=== PATIENT | male | born 1935 | race Caucasian/White ===

== ENCOUNTER 2016-12-07 13:25 | Inpatient (IN) | payer MEDICARE, OTHER ==
[2016-12-07] MEDS ORDERED: Sodium Chloride 0.9% 10 ML Syringe FLUSH PRN (13:53)
[2016-12-07] MEDS: Lactated Ringers 1,000 ML IV SCH ×2 (15:23→23:23)
--- NOTE | 2016-12-07 15:43 | CR ---
INDICATION: Confusion. CHEST: Four images of the abdomen, three of them AP chests and one lateral, were obtained 12/07/2016 and compared with 11/09/2010, revealing the heart to be prominent in size, but not grossly enlarged. The aorta is tortuous and calcified in the arch and proximal descending portion. Bridging hyperostotic changes of mild degree to moderate degree are noted in the mid to upper middle thoracic spine. AP diameter prominence, slightly flattened diaphragm leaves, and hyperaeration all suggest COPD. A definite active infiltrate or effusion was not identified. Nipple shadows are noted at both lung bases. IMPRESSION: 1. No acute process. 2. COPD. 3. ASHD. 4. DJD spine. MTDD
--- NOTE | 2016-12-07 15:52 | CR ---
INDICATION: Pain, recent falls. Most shoulder pain on the left. RIGHT AND LEFT SHOULDERS: Six images of the shoulders were obtained and revealed demineralization compatible with osteoporosis. Evidence of 5 anchors on the right and 2 anchors on the left, compatible with rotator cuff repair, is noted. Severe degenerative changes are noted at the glenohumeral joints with a greater degree of narrowing and hypertrophic change on the left, there being virtually no remaining joint space on the left and 1.5-mm remaining joint space on the right. Relatively mild degenerative changes are noted at the AC joints. A definite fracture or dislocation was not identified. IMPRESSION: 1. Osteoarthritis, left greater than right. 2. Osteoporosis. 3. Post surgical changes with 2 anchors in the greater tuberosity on the left and 5 anchors on the right. MTDD
--- NOTE | 2016-12-07 16:12 | PCM.HP ---
H&P History of Present Illness - General Date of Service: 12/07/16 Admit Problem/Dx: Admission Diagnosis/Problem Admission Diagnosis/Problem Weakness Source of Information: Patient, Old Records - History of Present Illness Initial Comments - Free Text/Narative: 80-year-old male from [facility]. He came in because generalized weakness,and confusion symptoms which got significantly worse in him a month. His main concern today is left shoulder pain that is chronic.No trauma.Had injection of a steroid in October,withno improvement.Movement makes the pain worse. The confusion has been noted by the staff,with increased need of assistance with activities of daily living .He has a history of Parkinson's disease that's progressively gotten worse recently,with speech and gait disturbance.He has hypertension ,afib,CHF which have been stable. Left shoulder Pain Score (Numeric/FACES): 5 - Related Data Allergies/Adverse Reactions: Allergies Allergy/AdvReac Type Severity Reaction Status Date / Time No Known Allergies Allergy Verified 12/07/16 15:25 Home Medications: Home Meds Acetaminophen [Tylenol] 650 mg PO Q4H PRN 04/02/14 [History] Aspirin [Halfprin] 81 mg PO DAILY 04/02/14 [History] Finasteride [Proscar] 5 mg PO DAILY 04/02/14 [History] Loperamide [Imodium] 4 mg PO Q6H PRN 04/02/14 [History] Magnesium Citrate 296 ml PO DAILY PRN 04/02/14 [History] Polyethylene Glycol 3350 [MiraLAX] 17 gm PO DAILY PRN 04/02/14 [History] Pramipexole Di-HCl [Mirapex] 0.25 mg PO BID 04/02/14 [History] Carbidopa/Levodopa [Carbidopa-Levodopa 25-100] 1 tab PO 06,10,14,18 04/05/14 [ History] Melatonin 5 mg PO BEDTIME 05/27/15 [History] Etodolac 400 mg PO Q8H PRN 03/19/16 [History] Febuxostat [Uloric] 40 mg PO DAILY 03/19/16 [History] Hydrochlorothiazide 25 mg PO DAILY 03/19/16 [History] Pramipexole Di-HCl [Mirapex] 0.25 mg PO Q4H PRN 03/20/16 [History] Acetaminophen [Tylenol Arthritis] 650 mg PO BID 12/07/16 [History] Past Medical History HEENT History: Reports: Cataract Other HEENT History: BASAL CELL CA OF LEFT LOWER EYELID. Cardiovascular History: Reports: Afib, Hypertension Respiratory History: Reports: None Other Gastrointestinal History: STATES HAS HAD HERNIA REPAIR Genitourinary History: Reports: Prostate Disorder Musculoskeletal History: Reports: Back Pain, Chronic, Fracture, Gout Neurological History: Reports: Parkinson's Psychiatric History: Reports: Anxiety Hematologic History: Reports: None Immunologic History: Reports: None Oncologic (Cancer) History: Reports: Basal Cell Carcinoma, Prostate Dermatologic History: Reports: Other (See Below) Other Dermatologic History: FACIAL BASAL CELL CANCER - Infectious Disease History Infectious Disease History: Reports: Chicken Pox, Influenza, Shingles - Past Surgical History HEENT Surgical History: Reports: Cataract Surgery Cardiovascular Surgical History: Reports: None Respiratory Surgical History: Reports: None GI Surgical History: Reports: Appendectomy, Hernia, Abdominal Male Surgical History: Reports: Other (See Below) Musculoskeletal Surgical History: Reports: Shoulder Surgery, Other (See Below) Dermatological Surgical History: Reports: Skin Biopsy Social & Family History - Family History Family Medical History: Noncontributory - Tobacco Use Smoking Status *Q: Never Smoker Second Hand Smoke Exposure: No - Caffeine Use Caffeine Use: Reports: Coffee - Alcohol Use Days Per Week of Alcohol Use: 7 Number of Drinks Per Day: 2 Total Drinks Per Week: 14 - Recreational Drug Use Recreational Drug Use: No H&P Review of Systems - Review of Systems: Review Of Systems: ROS reveals no pertinent complaints other than HPI. Exam - Exam Exam: See Below - Vital Signs Vital Signs: Last Vital Signs Temp 97.6 F 12/07/16 13:53 Pulse 48 L 12/07/16 13:53 Resp 18 12/07/16 13:53 BP 143/84 H 12/07/16 13:53 Pulse Ox 100 12/07/16 13:53 Weight: 79.333 kg - Exam General: Alert, Oriented, 4 HEENT: PERRLA, Hearing Intact, Mucosa Moist & [place], Nares Patent, Normal Nasal Septum, Posterior Pharynx Clear, Conjunctiva Clear, EOMI, EACs Clear, TMs Clear Neck: Supple, Trachea Midline, 2 Lungs: Clear to Auscultation, Normal Respiratory Effort Cardiovascular: Regular Rate, Regular Rhythm Abdomen: Normal Bowel Sounds, Soft (Male) Exam: Deferred Rectal (Males) Exam: Deferred Back Exam: Normal Inspection, Full Range of Motion, NT Extremities: Other (Left shoulder decreased ROM) Skin: Warm, Dry, Intact Neurological: Cranial Nerves Intact, Abnormal Gait Neuro Extensive - Mental Status: Alert, Oriented x3, Normal Mood/Affect, Normal Cognition Neuro Extensive - Motor, Sensory, Reflexes: Dysarthria, Tremor Psychiatric: Alert, Normal Affect, Normal Mood - Patient Data Imaging Impressions last 24 hrs: I reviewed Xrays,OA in the shoulders *Q Meaningful Use (ADM) - VTE *Q VTE Criteria *Q: - Stroke *Q Stroke Criteria *Q: - AMI *Q AMI Criteria *Q: - Problem List (1) Physical deconditioning SNOMED Code(s): 30197735263239 ICD Code: R53.81 - OTHER MALAISE Status: Acute Current Visit: Yes (2) Osteoarthritis SNOMED Code(s): 884145902 ICD Code: M19.90 - UNSPECIFIED OSTEOARTHRITIS, UNSPECIFIED SITE Status: Acute Current Visit: Yes Qualifiers: Osteoarthritis location: shoulder Osteoarthritis type: primary (3) Dementia SNOMED Code(s): 38920327 ICD Code: F03.90 - UNSPECIFIED DEMENTIA WITHOUT BEHAVIORAL DISTURBANCE Status: Chronic Current Visit: No (4) HTN, Essential hypertension SNOMED Code(s): 72279034 ICD Code: I10 - ESSENTIAL (PRIMARY) HYPERTENSION Status: Chronic Priority : High Current Visit: No (5) Parkinson's disease SNOMED Code(s): 64853017 ICD Code: G20 - PARKINSON'S DISEASE Status: Chronic Priority: High Current Visit: No Onset Date: 04/02/14 Problem Details: Continue current medications. Continue medications Problem List Initiated/Reviewed/Updated: Yes Orders Last 24hrs: Active Orders 24 hr Category Date Time Status Patient Status [ADT] Routine ADT 12/07/16 13:53 Active Height and Weight [RC] 0600 Care 12/07/16 13:53 Active Intake and Output [RC] ,14, Care 12/07/16 13:54 Active Oxygen Therapy [RC] PRN Care 12/07/16 13:53 Active Up With Assistance [RC] ASDIRECTED Care 12/07/16 13:53 Active VTE/DVT Education [RC] Per Unit Routine Care 12/07/16 13:53 Active Vital Signs [RC] 08,12,16,20,00,04 Care 12/07/16 13:53 Active OT Evaluation and Treatment [CONS] Routine Cons 12/07/16 13:53 Active PT Evaluation and Treatment [CONS] Routine Cons 12/07/16 13:53 Active Regular Diet [DIET] Diet 12/07/16 Breakfast Active CBC WITH AUTO DIFF [HEME] AM Lab 12/08/16 05:11 Ordered COMPREHENSIVE METABOLIC PN,CMP [CHEM] AM Lab 12/08/16 05:11 Ordered TROPONIN I [CHEM] AM Lab 12/08/16 05:11 Ordered Lactated Ringers [Ringers, Lactated] 1,000 ml Med 12/07/16 14:00 Active IV ASDIRECTED Sodium Chloride 0.9% [Saline Flush] Med 12/07/16 13:53 Active 10 ml FLUSH ASDIRECTED PRN Peripheral IV Insertion Adult [OM.PC] Routine Oth 12/07/16 13:53 Ordered Resuscitation Status Routine Resus Stat 12/07/16 13:53 Ordered Medication Orders Lactated Ringer's (Ringers, Lactated) 1,000 mls @ 125 mls/hr IV ASDIRECTED CATHY Last Admin: 12/07/16 15:23 Dose: 125 mls/hr Sodium Chloride (Saline Flush) 10 ml FLUSH ASDIRECTED PRN PRN Reason: Keep Vein Open Last Admin: 12/07/16 15:24 Dose: 10 ml Assessment/Plan Comment:: I plan to give him fluid resuscitation with normal saline or lactated Ringer's. I went repeat some blood work in morning,Also I would like physical and occupational therapy to see him for strengthening purposes. Control his pain with Voltaren gel to the left shoulder and perhaps Celebrex when necessary. After physical and Occupational therapy, he might need disposition to either swing bed or a residential facility.For now will continue the rest of his home medications.
[2016-12-07] MEDS ORDERED: Polyethylene Glycol 3350 Powder 17 GM Packet PO PRN (16:22)
[2016-12-07] MEDS ORDERED: Acetaminophen 325 MG Tab PO PRN (16:22)
[2016-12-07] MEDS ORDERED: Pramipexole 0.25 MG Tab PO PRN (16:22)
[2016-12-07] MEDS ORDERED: Magnesium Citrate Solution 296 ML Bottle PO PRN (16:22)
[2016-12-07] MEDS ORDERED: Loperamide 2 MG Cap PO PRN (16:22)
[2016-12-07] MEDS: Carbidopa/Levodopa 25-100 MG Tab PO SCH (17:31)
[2016-12-07] MEDS: Diclofenac Sodium 1% Gel 100 GM Tube TOP SCH ×2 (17:32→20:56)
[2016-12-07] MEDS: Celecoxib 200 MG Cap PO SCH (17:32)
[2016-12-07] MEDS: Pramipexole 0.25 MG Tab PO SCH (20:56)
[2016-12-08] MEDS: Lactated Ringers 1,000 ML IV SCH (05:41)
[2016-12-08] MEDS: Carbidopa/Levodopa 25-100 MG Tab PO SCH ×4 (05:42→17:31)
[2016-12-08] MEDS: Aspirin 81 MG Tab.EC PO SCH (08:50)
[2016-12-08] MEDS: Celecoxib 200 MG Cap PO SCH (08:50)
[2016-12-08] MEDS: Finasteride 5 MG Tab PO SCH (08:50)
[2016-12-08] MEDS: Febuxostat 40 MG Tab PO SCH (08:50)
[2016-12-08] MEDS: Diclofenac Sodium 1% Gel 100 GM Tube TOP SCH ×4 (08:50→21:22)
[2016-12-08] MEDS: Hydrochlorothiazide 25 MG Tab PO SCH (08:50)
[2016-12-08] MEDS: Pramipexole 0.25 MG Tab PO SCH ×2 (08:50→21:21)
--- NOTE | 2016-12-08 10:33 | PN ---
DATE SEEN: 12/08/2016 CHIEF COMPLAINT: Pain, left shoulder. HISTORY OF PRESENT ILLNESS: This is an 81-year-old male, brought in yesterday because of confusion, generalized weakness, and increased difficulty in ambulation due to parkinsonism. He also has chronic left shoulder pain due to osteoarthritis. This morning, he feels better. The pain is controlled on Celebrex and Voltaren gel. He has also been seen by Occupational Therapy. He feels that he is almost back to his baseline in terms of pain and movement. REVIEW OF SYSTEMS: There has been no fever or chills. No chest pain. No shortness of breath. He slept well. MEDICATIONS: Reviewed. ALLERGIES: Reviewed. PHYSICAL EXAMINATION: GENERAL: He appears not in any cardiopulmonary distress. VITAL SIGNS: Initial blood pressure today is 149/82, pulse 40, and temperature 97.5. HEENT: Negative. Head normal size. MENTAL STATUS: Alert and answers questions well. No signs of arcelia or psychosis. Memory is intact. MUSCULOSKELETAL: Left shoulder, decreased range of motion, but better than yesterday. Gait shuffling. NEUROLOGIC: No other focal findings. LABORATORY DATA: Normal white cell count this morning. CO2 of 31. Sodium and electrolytes are normal. Troponin less than 0.01. X-ray, they did show osteoarthritis on the left shoulder. IMPRESSION: 1. Chronic osteoarthritis, left shoulder. 2. Parkinsonism. 3. Alteration of mental status, likely mild delirium. 4. General weakness and physical deconditioning. 5. History of atrial fibrillation. PLAN: My plan is to continue physical strengthening today. I encouraged ambulation. I expect that I will send him back to the [facility] tomorrow. /[id number] SONIYA/NEALL
[2016-12-09] MEDS: Carbidopa/Levodopa 25-100 MG Tab PO SCH ×4 (05:41→17:23)
[2016-12-09] MEDS: Hydrochlorothiazide 25 MG Tab PO SCH (08:25)
[2016-12-09] MEDS: Febuxostat 40 MG Tab PO SCH (08:25)
[2016-12-09] MEDS: Finasteride 5 MG Tab PO SCH (08:25)
[2016-12-09] MEDS: Celecoxib 200 MG Cap PO SCH (08:25)
[2016-12-09] MEDS: Pramipexole 0.25 MG Tab PO SCH ×2 (08:25→20:55)
[2016-12-09] MEDS: Aspirin 81 MG Tab.EC PO SCH (08:25)
[2016-12-09] MEDS: Diclofenac Sodium 1% Gel 100 GM Tube TOP SCH ×4 (08:26→20:55)
--- NOTE | 2016-12-09 10:01 | PN ---
DATE SEEN: 12/09/2016 REASON FOR VISIT: Alteration of mental status. SUBJECTIVE: An 81-year-old male with alteration of mental status upon admission, Parkinsonism, chronic left shoulder pain, and generalized weakness and deconditioning, has improved. Yesterday, he attended physical therapy. They feel he is ready and back to his baseline. He had no complaints this morning. The pain in the left shoulder has improved significantly with diclofenac gel and Celebrex. He would like to go back to the [facility] with home health. REVIEW OF SYSTEMS: No fever, chest pain, or shortness of breath. No leg swelling. SOCIAL HISTORY: Nonsmoker. He does not use any alcohol in excess. OBJECTIVE: VITAL SIGNS: He has a blood pressure today of 128/68 and temperature 97.6. His heart rate is 38, which is chronically low. MENTAL STATUS: He is alert today and answers questions appropriately. MUSCULOSKELETAL: Revealed subluxation of the left shoulder and tenderness on moderate palpation, and slightly improved range of motion from yesterday. CHEST: Clear. CARDIOVASCULAR: No murmurs. Bradycardia noted. LABORATORY DATA: No new labs today. FINAL IMPRESSION: 1. Chronic left shoulder pain due to osteoarthritis. 2. Parkinsonism. 3. Mild mental status changes, improved. 4. Bradycardia. 5. Physical deconditioning, improved. 6. History of atrial fibrillation. PLAN: My plan is to discharge home back to the [facility]. He will need medication to help there for Home Health for medication and coordination of care will be necessary. /[id number] SONIYA/FABRICIO MCKENZIE
--- NOTE | 2016-12-09 11:28 | PN ---
DISCHARGE CANCELLED DATE SEEN: 12/09/2016 REASON FOR ADMISSION: 1. Physical deconditioning, weakness. 2. Confusion. 3. Parkinsonism. 4. Left shoulder pain. 5. Hypertension. DISCHARGE DIAGNOSES: 1. Left shoulder pain due to arthritis. 2. Physical deconditioning. 3. Dementia. 4. Mild hypertension. 5. Bradycardia. 6. Atrial fibrillation. CONSULTATIONS: Occupational and physical therapy. PROCEDURES: None. BRIEF HISTORY: This is an 81-year-old from [facility], who came to the clinic because of confusion, weakness, and needing more assistance than usual. He was dehydrated upon admission and we consulted physical and occupational therapy. They worked with him yesterday and they feel that he is back to his baseline. His labs were normal. He was noted to have a chronically low bradycardia, but with no symptoms. His shoulder improved upon physical therapy and diclofenac gel and Celebrex. He will be discharged home today. DISCHARGE MEDICATIONS: 1. Acetaminophen 650 mg q.4 hours p.r.n. 2. Aspirin 81 mg a day. 3. Sinemet 1 tablet 4 times a day. 4. Celebrex 200 mg daily. 5. Diclofenac gel q.i.d. 2 g. 6. Uloric 40 mg a day. 7. Proscar 5 mg daily. 8. Hydrochlorothiazide 25 mg a day. 9. Melatonin 5 mg p.o. at bedtime. 10.Mirapex p.r.n. every 4 hours, 0.5 mg b.i.d. FOLLOWUP: He will see his physician in a week. He can go back to the emergency room if there are any worsening symptoms. Please note that I spent 35 minutes in the discharge of the patient. /[id number] SONIYA/FABRICIO MTDD
[2016-12-10] MEDS: Carbidopa/Levodopa 25-100 MG Tab PO SCH ×2 (06:01→09:26)
--- NOTE | 2016-12-10 08:10 | PCM.PN ---
- General Info Date of Service: 12/10/16 Admission Dx/Problem (Free Text): Patient feels he is weak. The assisted living would not receive him back last because of the falls and weakness. He denies mental confusion, fevers, chills, nasal congestion, chest pain, shortness of breath, cough. - Patient Data Vitals - most recent: Last Vital Signs Temp 97.5 F 12/10/16 00:30 Pulse 36 L 12/10/16 00:30 Resp 16 12/10/16 00:30 BP 162/73 H 12/10/16 00:30 Pulse Ox 98 12/10/16 00:30 Weight - most recent: 174 lb 6.4 oz I&O - last 24 hours: Intake & Output 12/09/16 12/10/16 12/10/16 22:59 06:59 14:59 Intake Total 600 Output Total 300 1200 Balance 300 -1200 Med Orders - Current: Current Medications Acetaminophen (Tylenol) 650 mg PO Q4H PRN PRN Reason: Pain (mild 1-3) Last Admin: 12/09/16 20:58 Dose: 650 mg Aspirin (Halfprin) 81 mg PO DAILY [facility] Last Admin: 12/09/16 08:25 Dose: 81 mg Carbidopa/Levodopa (Sinemet 25-100 Mg) 1 tab PO ,,14,18 [facility] Last Admin: 12/10/16 06:01 Dose: 1 tab Celecoxib (Celebrex) 200 mg PO DAILY [facility] Last Admin: 12/09/16 08:25 Dose: 200 mg Diclofenac Sodium (Voltaren 1% Gel) 2 gm TOP QID [facility] Last Admin: 12/09/16 20:55 Dose: 2 gm Febuxostat (Uloric) 40 mg PO DAILY [facility] Last Admin: 12/09/16 08:25 Dose: 40 mg Finasteride (Proscar) 5 mg PO DAILY [facility] Last Admin: 12/09/16 08:25 Dose: 5 mg Hydrochlorothiazide (Hydrochlorothiazide) 25 mg PO DAILY [facility] Last Admin: 12/09/16 08:25 Dose: 25 mg Loperamide HCl (Imodium) 4 mg PO Q6H PRN PRN Reason: LOOSE STOOLS Magnesium Citrate (Citrate Of Magnesia) 296 ml PO DAILY PRN PRN Reason: Constipation Melatonin (Melatonin) 5 mg PO BEDTIME [facility] Last Admin: 12/09/16 20:55 Dose: 5 mg Polyethylene Glycol (Miralax) 17 gm PO DAILY PRN PRN Reason: Constipation Pramipexole Dihydrochloride (Mirapex) 0.25 mg PO BID [facility] Last Admin: 12/09/16 20:55 Dose: 0.25 mg Pramipexole Dihydrochloride (Mirapex) 0.25 mg PO Q4H PRN PRN Reason: restless legs Sodium Chloride (Saline Flush) 10 ml FLUSH ASDIRECTED PRN PRN Reason: Keep Vein Open Last Admin: 12/07/16 15:24 Dose: 10 ml Discontinued Medications Lactated Ringer's (Ringers, Lactated) 1,000 mls @ 125 mls/hr IV ASDIRECTED [facility] Last Admin: 12/08/16 05:41 Dose: 125 mls/hr - Exam General: alert, cooperative, no acute distress Lungs: Clear to auscultation, Normal respiratory effort Cardiovascular: Regular Rate, No Murmurs. No: Bradycardia, Tachycardia Extremities: no edema Neurological: normal tone, strength equal bilateral (week) Psy/Mental Status: alert, normal affect, normal mood - Problem List & Annotations (1) Palliative care status SNOMED Code(s): 442994804 Code(s): Z51.5 - ENCOUNTER FOR PALLIATIVE CARE Status: Acute Current Visit: Yes (2) Osteoarthritis SNOMED Code(s): 060888040 Code(s): M19.90 - UNSPECIFIED OSTEOARTHRITIS, UNSPECIFIED SITE Status: Acute Current Visit: Yes Qualifiers: Osteoarthritis location: shoulder Osteoarthritis type: primary (3) Physical deconditioning SNOMED Code(s): 61286169723038 Code(s): R53.81 - OTHER MALAISE Status: Acute Current Visit: Yes (4) Dementia SNOMED Code(s): 39207537 Code(s): F03.90 - UNSPECIFIED DEMENTIA WITHOUT BEHAVIORAL DISTURBANCE Status: Chronic Current Visit: No (5) HTN, Essential hypertension SNOMED Code(s): 88154557 Code(s): I10 - ESSENTIAL (PRIMARY) HYPERTENSION Status: Chronic Priority : High Current Visit: No (6) Impairment of balance SNOMED Code(s): 409500821 Code(s): R26.89 - OTHER ABNORMALITIES OF GAIT AND MOBILITY Status: Chronic Priority: High Current Visit: No Onset Date: 04/02/14 Annotation/ Comment:: MRI, Labs, continue medications. Fall risk. Bandage skin tears. CT scan head negative stoke. MRI with sedation pending. Same as noted for prelimary results. MRI lacunar infarcts and small veseel dx, awaiting complete report. Parkinsons progression (7) Parkinson's disease SNOMED Code(s): 17414118 Code(s): G20 - PARKINSON'S DISEASE Status: Chronic Priority: High Current Visit: No Onset Date: 04/02/14 Annotation/Comment:: Continue current medications. Continue medications - Problem List Review Problem List Initiated/Reviewed/Updated: Yes - Plan Plan:: 1. PT/OT evaluation today.
[2016-12-10 09:15] VITALS: BP 113/61
[2016-12-10] MEDS: Hydrochlorothiazide 25 MG Tab PO SCH (09:25)
[2016-12-10] MEDS: Celecoxib 200 MG Cap PO SCH (09:25)
[2016-12-10] MEDS: Pramipexole 0.25 MG Tab PO SCH (09:25)
[2016-12-10] MEDS: Aspirin 81 MG Tab.EC PO SCH (09:25)
[2016-12-10] MEDS: Febuxostat 40 MG Tab PO SCH (09:26)
[2016-12-10] MEDS: Diclofenac Sodium 1% Gel 100 GM Tube TOP SCH (09:26)
[2016-12-10] MEDS: Finasteride 5 MG Tab PO SCH (09:26)
--- NOTE | 2016-12-10 10:41 | PCM.DCSUM1 ---
Discharge Summary - Hospital Course Free Text/Narrative:: Hospital course-patient was evaluated place in the hospital. PT/OT saw him. Initially he had some good walking but then he started to get worse and he stumbled and was falling not able to get his coordination. Dr. Gail escobar was going to send him back to [facility]. He had 4 falls in one day. They did want to take him back. He was evaluated for swing bed and felt that he would benefit from PT/OT. Possibly should be evaluated for long-term. He'll be transferred to swing bed today. Brief History: 80-year-old male from [facility]. He came in because generalized weakness,and confusion symptoms which got significantly worse in him a month. His main concern today is left shoulder pain that is chronic.No trauma.Had injection of a steroid in October,withno improvement.Movement makes the pain worse. The confusion has been noted by the staff,with increased need of assistance with activities of daily living .He has a history of Parkinson's disease that's progressively gotten worse recently,with speech and gait disturbance.He has hypertension ,afib,CHF which have been stable. - Discharge Data Discharge Date: 12/10/16 Discharge Disposition: DC/Tfer W/I Hosp To Swing 61 Condition: Fair - Discharge Diagnosis/Problem(s) (1) Palliative care status SNOMED Code(s): 394460506 ICD Code: Z51.5 - ENCOUNTER FOR PALLIATIVE CARE Status: Acute Current Visit: Yes (2) Osteoarthritis SNOMED Code(s): 129446148 ICD Code: M19.90 - UNSPECIFIED OSTEOARTHRITIS, UNSPECIFIED SITE Status: Acute Current Visit: Yes Qualifiers: Osteoarthritis location: shoulder Osteoarthritis type: primary (3) Physical deconditioning SNOMED Code(s): 88546032219277 ICD Code: R53.81 - OTHER MALAISE Status: Acute Current Visit: Yes (4) Dementia SNOMED Code(s): 58958836 ICD Code: F03.90 - UNSPECIFIED DEMENTIA WITHOUT BEHAVIORAL DISTURBANCE Status: Chronic Current Visit: No (5) HTN, Essential hypertension SNOMED Code(s): 04452901 ICD Code: I10 - ESSENTIAL (PRIMARY) HYPERTENSION Status: Chronic Priority : High Current Visit: No (6) Impairment of balance SNOMED Code(s): 475879091 ICD Code: R26.89 - OTHER ABNORMALITIES OF GAIT AND MOBILITY Status: Chronic Priority: High Current Visit: No Onset Date: 04/02/14 Problem Details: MRI, Labs, continue medications. Fall risk. Bandage skin tears. CT scan head negative stoke. MRI with sedation pending. Same as noted for prelimary results. MRI lacunar infarcts and small veseel dx, awaiting complete report. Parkinsons progression (7) Parkinson's disease SNOMED Code(s): 01470516 ICD Code: G20 - PARKINSON'S DISEASE Status: Chronic Priority: High Current Visit: No Onset Date: 04/02/14 Problem Details: Continue current medications. Continue medications - Patient Summary/Data Consults: Consultations 12/07/16 13:53 OT Evaluation and Treatment [CONS] Routine Please Evaluate and Treat. OT Reason for Consult: Discharge Planning This query below is only for informational purposes and is not editable. PT Evaluation and Treatment [CONS] Routine Please Evaluate and Treat. PT Reason for Consult: Strengthening This query below is only for informational purposes and is not editable. - Patient Instructions Diet: Regular Diet as Tolerated Activity: As Tolerated Driving: Do Not Drive Showering/Bathing: May Shower - Discharge Plan Prescriptions/Med Rec: Diclofenac Sodium [Voltaren 1% Gel] 2 gm TOP QID #1 tube Home Medications: Home Meds Acetaminophen [Tylenol] 650 mg PO Q4H PRN 04/02/14 [History] Aspirin [Halfprin] 81 mg PO DAILY 04/02/14 [History] Finasteride [Proscar] 5 mg PO DAILY 04/02/14 [History] Loperamide [Imodium] 4 mg PO Q6H PRN 04/02/14 [History] Magnesium Citrate 296 ml PO DAILY PRN 04/02/14 [History] Polyethylene Glycol 3350 [MiraLAX] 17 gm PO DAILY PRN 04/02/14 [History] Pramipexole Di-HCl [Mirapex] 0.25 mg PO BID 04/02/14 [History] Carbidopa/Levodopa [Carbidopa-Levodopa 25-100] 1 tab PO 06,,14,18 04/05/14 [ History] Melatonin 5 mg PO BEDTIME 05/27/15 [History] Febuxostat [Uloric] 40 mg PO DAILY 03/19/16 [History] Hydrochlorothiazide 25 mg PO DAILY 03/19/16 [History] Pramipexole Di-HCl [Mirapex] 0.25 mg PO Q4H PRN 03/20/16 [History] Acetaminophen [Tylenol Arthritis] 650 mg PO BID 12/07/16 [History] Diclofenac Sodium [Voltaren 1% Gel] 2 gm TOP QID #1 tube 12/10/16 [Rx] Patient Handouts: Venous Thromboembolism, Fall Prevention in Hospitals, Adult Referrals: PCP,Unknown [Ordering Only Provider] - 12/16/16 - Discharge Summary/Plan Comment DC Time >30 min.: No - Patient Data Vitals - Most Recent: Last Vital Signs Temp 97.3 F 12/10/16 09:05 Pulse 43 L 12/10/16 09:05 Resp 18 12/10/16 09:05 BP 113/61 12/10/16 09:05 Pulse Ox 96 12/10/16 09:05 Weight - Most Recent: 174 lb 6.4 oz I&O - Last 24 hours: Intake & Output 12/09/16 12/10/16 12/10/16 22:59 06:59 14:59 Intake Total 600 Output Total 300 1200 Balance 300 -1200 Med Orders - Current: Current Medications Acetaminophen (Tylenol) 650 mg PO Q4H PRN PRN Reason: Pain (mild 1-3) Last Admin: 12/09/16 20:58 Dose: 650 mg Aspirin (Halfprin) 81 mg PO DAILY [facility] Last Admin: 12/10/16 09:25 Dose: 81 mg Carbidopa/Levodopa (Sinemet 25-100 Mg) 1 tab PO ,,,18 [facility] Last Admin: 12/10/16 09:26 Dose: 1 tab Celecoxib (Celebrex) 200 mg PO DAILY [facility] Last Admin: 12/10/16 09:25 Dose: 200 mg Diclofenac Sodium (Voltaren 1% Gel) 2 gm TOP QID [facility] Last Admin: 12/10/16 09:26 Dose: 2 gm Febuxostat (Uloric) 40 mg PO DAILY [facility] Last Admin: 12/10/16 09:26 Dose: 40 mg Finasteride (Proscar) 5 mg PO DAILY [facility] Last Admin: 12/10/16 09:26 Dose: 5 mg Hydrochlorothiazide (Hydrochlorothiazide) 25 mg PO DAILY [facility] Last Admin: 12/10/16 09:25 Dose: 25 mg Loperamide HCl (Imodium) 4 mg PO Q6H PRN PRN Reason: LOOSE STOOLS Magnesium Citrate (Citrate Of Magnesia) 296 ml PO DAILY PRN PRN Reason: Constipation Melatonin (Melatonin) 5 mg PO BEDTIME [facility] Last Admin: 12/09/16 20:55 Dose: 5 mg Polyethylene Glycol (Miralax) 17 gm PO DAILY PRN PRN Reason: Constipation Pramipexole Dihydrochloride (Mirapex) 0.25 mg PO BID [facility] Last Admin: 12/10/16 09:25 Dose: 0.25 mg Pramipexole Dihydrochloride (Mirapex) 0.25 mg PO Q4H PRN PRN Reason: restless legs Sodium Chloride (Saline Flush) 10 ml FLUSH ASDIRECTED PRN PRN Reason: Keep Vein Open Last Admin: 12/07/16 15:24 Dose: 10 ml Discontinued Medications Lactated Ringer's (Ringers, Lactated) 1,000 mls @ 125 mls/hr IV ASDIRECTED [facility] Last Admin: 12/08/16 05:41 Dose: 125 mls/hr *Q Meaningful Use (DIS) - VTE *Q VTE Criteria *Q: - Stroke *Q Stroke Criteria *Q: - AMI *Q AMI Criteria *Q:
== END 2016-12-10 10:45 | disposition swing bed (61) | DRG 57 ==
LOC: FB.MS 13:33
PROVIDERS: ADMIT Family Medicine; ATTEND Family Medicine
DX: G20 Parkinson's disease (principal); R53.1 Weakness; F02.80 Dementia in other diseases classified elsewhere, unspecified severity, without behavioral disturbance, psychotic disturbance, mood disturbance, and anxiety; G89.29 Other chronic pain; M25.512 Pain in left shoulder; Z79.82 Long term (current) use of aspirin; Z85.46 Personal history of malignant neoplasm of prostate; Z85.828 Personal history of other malignant neoplasm of skin; R29.6 Repeated falls; Z51.5 Encounter for palliative care; R53.81 Other malaise; R26.89 Other abnormalities of gait and mobility; R00.1 Bradycardia, unspecified; R41.82 Altered mental status, unspecified; M19.012 Primary osteoarthritis, left shoulder; I10 Essential (primary) hypertension; Z86.79 Personal history of other diseases of the circulatory system; M54.9 Dorsalgia, unspecified; Z91.81 History of falling
CPT/HCPCS: 36415; 71020; 73030-50; 80053; 84484; 85025; 97161-GP; 97165-GO; 97530-GO-KX; A9270-GY; J7050; J7120

== ENCOUNTER 2016-12-10 10:47 | Inpatient (IN) | payer MEDICARE, OTHER ==
[2016-12-10] MEDS ORDERED: Pramipexole 0.25 MG Tab PO PRN (11:04)
[2016-12-10] MEDS ORDERED: Polyethylene Glycol 3350 Powder 17 GM Packet PO PRN (11:04)
[2016-12-10] MEDS ORDERED: Loperamide 2 MG Cap PO PRN (11:04)
[2016-12-10] MEDS ORDERED: Magnesium Citrate Solution 296 ML Bottle PO PRN (11:04)
[2016-12-10] MEDS: Carbidopa/Levodopa 25-100 MG Tab PO SCH ×2 (13:13→17:59)
[2016-12-10] MEDS: Diclofenac Sodium 1% Gel 100 GM Tube TOP SCH ×3 (13:14→21:04)
[2016-12-10] MEDS: Acetaminophen 650 MG Tab.ER PO SCH (21:04)
[2016-12-10] MEDS: Pramipexole 0.25 MG Tab PO SCH (21:04)
[2016-12-11] MEDS: Carbidopa/Levodopa 25-100 MG Tab PO SCH ×4 (06:28→18:52)
[2016-12-11] MEDS: Celecoxib 200 MG Cap PO SCH (08:24)
[2016-12-11] MEDS: Febuxostat 40 MG Tab PO SCH (08:24)
[2016-12-11] MEDS: Finasteride 5 MG Tab PO SCH (08:25)
[2016-12-11] MEDS: Diclofenac Sodium 1% Gel 100 GM Tube TOP SCH ×4 (08:25→20:05)
[2016-12-11] MEDS: Acetaminophen 650 MG Tab.ER PO SCH ×2 (08:25→20:04)
[2016-12-11] MEDS: Pramipexole 0.25 MG Tab PO SCH ×2 (08:25→20:05)
[2016-12-11] MEDS: Aspirin 81 MG Tab.EC PO SCH (08:25)
[2016-12-11] MEDS: Hydrochlorothiazide 25 MG Tab PO SCH (08:25)
[2016-12-12] MEDS: Carbidopa/Levodopa 25-100 MG Tab PO SCH ×4 (06:53→17:23)
[2016-12-12] MEDS: Pramipexole 0.25 MG Tab PO SCH ×2 (08:23→20:29)
[2016-12-12] MEDS: Finasteride 5 MG Tab PO SCH (08:23)
[2016-12-12] MEDS: Aspirin 81 MG Tab.EC PO SCH (08:23)
[2016-12-12] MEDS: Celecoxib 200 MG Cap PO SCH (08:23)
[2016-12-12] MEDS: Hydrochlorothiazide 25 MG Tab PO SCH (08:23)
[2016-12-12] MEDS: Diclofenac Sodium 1% Gel 100 GM Tube TOP SCH ×4 (08:24→20:29)
[2016-12-12] MEDS: Acetaminophen 650 MG Tab.ER PO SCH ×2 (08:24→20:29)
[2016-12-12] MEDS: Febuxostat 40 MG Tab PO SCH (08:24)
[2016-12-13] MEDS: Carbidopa/Levodopa 25-100 MG Tab PO SCH ×4 (05:59→17:15)
[2016-12-13] MEDS: Diclofenac Sodium 1% Gel 100 GM Tube TOP SCH ×4 (08:14→20:32)
[2016-12-13] MEDS: Celecoxib 200 MG Cap PO SCH (08:14)
[2016-12-13] MEDS: Hydrochlorothiazide 25 MG Tab PO SCH (08:14)
[2016-12-13] MEDS: Febuxostat 40 MG Tab PO SCH (08:14)
[2016-12-13] MEDS: Pramipexole 0.25 MG Tab PO SCH ×2 (08:14→20:32)
[2016-12-13] MEDS: Finasteride 5 MG Tab PO SCH (08:14)
[2016-12-13] MEDS: Aspirin 81 MG Tab.EC PO SCH (08:14)
[2016-12-13] MEDS: Acetaminophen 650 MG Tab.ER PO SCH ×2 (08:14→20:32)
--- NOTE | 2016-12-13 10:02 | PCM.PN ---
- General Info Date of Service: 12/13/16 Admission Dx/Problem (Free Text): Patient states he is doing well. He still gets short of breath when he walks and feels weak. Occasionally he states he tripped over his feet. He has had bradycardia laser. He denies dizziness, palpitations, syncopal episodes. - Patient Data Vitals - most recent: Last Vital Signs Temp 98.3 F 12/13/16 08:16 Pulse 75 12/13/16 08:16 Resp 20 12/13/16 08:16 BP 95/50 L 12/13/16 08:16 Pulse Ox 96 12/13/16 08:16 Weight - most recent: 174 lb I&O - last 24 hours: Intake & Output 12/12/16 12/13/16 12/13/16 22:59 06:59 14:59 Intake Total 300 400 Output Total 600 Balance 300 -600 400 Med Orders - Current: Current Medications Acetaminophen (Tylenol Arthritis Pain) 650 mg PO BID [facility] Last Admin: 12/13/16 08:14 Dose: 650 mg Aspirin (Halfprin) 81 mg PO DAILY [facility] Last Admin: 12/13/16 08:14 Dose: 81 mg Carbidopa/Levodopa (Sinemet 25-100 Mg) 1 tab PO 06,10,14,18 [facility] Last Admin: 12/13/16 09:32 Dose: 1 tab Celecoxib (Celebrex) 200 mg PO DAILY [facility] Last Admin: 12/13/16 08:14 Dose: 200 mg Diclofenac Sodium (Voltaren 1% Gel) 2 gm TOP QID [facility] Last Admin: 12/13/16 08:14 Dose: 1 applic Febuxostat (Uloric) 40 mg PO DAILY [facility] Last Admin: 12/13/16 08:14 Dose: 40 mg Finasteride (Proscar) 5 mg PO DAILY [facility] Last Admin: 12/13/16 08:14 Dose: 5 mg Hydrochlorothiazide (Hydrochlorothiazide) 25 mg PO DAILY [facility] Last Admin: 12/13/16 08:14 Dose: 25 mg Loperamide HCl (Imodium) 4 mg PO Q6H PRN PRN Reason: LOOSE STOOLS Magnesium Citrate (Citrate Of Magnesia) 296 ml PO DAILY PRN PRN Reason: Constipation Melatonin (Melatonin) 5 mg PO BEDTIME [facility] Last Admin: 12/12/16 20:28 Dose: 5 mg Polyethylene Glycol (Miralax) 17 gm PO DAILY PRN PRN Reason: Constipation Pramipexole Dihydrochloride (Mirapex) 0.25 mg PO BID [facility] Last Admin: 12/13/16 08:14 Dose: 0.25 mg Pramipexole Dihydrochloride (Mirapex) 0.25 mg PO Q4H PRN PRN Reason: restless legs - Exam General: alert, oriented, cooperative Lungs: Clear to auscultation, Normal respiratory effort Cardiovascular: No Murmurs, Irregular Rhythm, Bradycardia Extremities: no edema - Problem List & Annotations (1) A-fib SNOMED Code(s): 81341508 Code(s): I48.91 - UNSPECIFIED ATRIAL FIBRILLATION Status: Acute Current Visit: Yes (2) Bradycardia SNOMED Code(s): 54849412 Code(s): R00.1 - BRADYCARDIA, UNSPECIFIED Status: Acute Current Visit: Yes (3) Fall SNOMED Code(s): 1824950 Code(s): W19.XXXA - UNSPECIFIED FALL, INITIAL ENCOUNTER Status: Acute Priority: High Current Visit: No Onset Date: 04/02/14 Annotation/Comment: : Gait belt, CT scan negative, MRI in am. Labs pending Mild elevation of bili. Rest labs negative. MRI delay, patient claustrophobic. Periods of confusion. Sedated MRI done today. Preliminary MRI shows lacunar changes and small vessel dx. Discussed with patient briefly. (4) Physical deconditioning SNOMED Code(s): 79679288808856 Code(s): R53.81 - OTHER MALAISE Status: Acute Current Visit: No (5) Dementia SNOMED Code(s): 60885708 Code(s): F03.90 - UNSPECIFIED DEMENTIA WITHOUT BEHAVIORAL DISTURBANCE Status: Chronic Current Visit: No (6) Parkinson's disease SNOMED Code(s): 74628198 Code(s): G20 - PARKINSON'S DISEASE Status: Chronic Priority: High Current Visit: No Onset Date: 04/02/14 Annotation/Comment:: Continue current medications. Continue medications - Problem List Review Problem List Initiated/Reviewed/Updated: Yes - My Orders Last 24 Hours: My Active Orders 12/13/16 09:21 EKG Documentation Completion [RC] ASDIRECTED EKG 12 Lead [EK] Routine - Plan Plan:: 1. I looked in his old chart and he has had bradycardia for a long time that is asymptomatic. So I will not pursue it at this time other than getting an EKG. He states he is asymptomatic by symptoms. 2. Continue PT/OT and swing bed.
[2016-12-14] MEDS: Carbidopa/Levodopa 25-100 MG Tab PO SCH ×4 (06:13→18:05)
[2016-12-14] MEDS: Febuxostat 40 MG Tab PO SCH (08:31)
[2016-12-14] MEDS: Finasteride 5 MG Tab PO SCH (08:31)
[2016-12-14] MEDS: Pramipexole 0.25 MG Tab PO SCH ×2 (08:31→22:21)
[2016-12-14] MEDS: Acetaminophen 650 MG Tab.ER PO SCH ×2 (08:31→22:21)
[2016-12-14] MEDS: Hydrochlorothiazide 25 MG Tab PO SCH (08:31)
[2016-12-14] MEDS: Aspirin 81 MG Tab.EC PO SCH (08:31)
[2016-12-14] MEDS: Diclofenac Sodium 1% Gel 100 GM Tube TOP SCH ×4 (08:31→22:21)
[2016-12-14] MEDS: Celecoxib 200 MG Cap PO SCH (08:31)
[2016-12-15] MEDS: Carbidopa/Levodopa 25-100 MG Tab PO SCH ×4 (06:44→17:35)
[2016-12-15] MEDS: Celecoxib 200 MG Cap PO SCH (08:39)
[2016-12-15] MEDS: Finasteride 5 MG Tab PO SCH (08:40)
[2016-12-15] MEDS: Hydrochlorothiazide 25 MG Tab PO SCH (08:40)
[2016-12-15] MEDS: Febuxostat 40 MG Tab PO SCH (08:40)
[2016-12-15] MEDS: Diclofenac Sodium 1% Gel 100 GM Tube TOP SCH ×4 (08:40→20:48)
[2016-12-15] MEDS: Pramipexole 0.25 MG Tab PO SCH ×2 (08:40→20:48)
[2016-12-15] MEDS: Aspirin 81 MG Tab.EC PO SCH (08:40)
[2016-12-15] MEDS: Acetaminophen 650 MG Tab.ER PO SCH ×2 (08:40→20:48)
[2016-12-16] MEDS: Carbidopa/Levodopa 25-100 MG Tab PO SCH ×4 (06:14→17:48)
[2016-12-16] MEDS: Celecoxib 200 MG Cap PO SCH (09:38)
[2016-12-16] MEDS: Aspirin 81 MG Tab.EC PO SCH (09:38)
[2016-12-16] MEDS: Hydrochlorothiazide 25 MG Tab PO SCH (09:38)
[2016-12-16] MEDS: Febuxostat 40 MG Tab PO SCH (09:39)
[2016-12-16] MEDS: Acetaminophen 650 MG Tab.ER PO SCH ×2 (09:39→21:02)
[2016-12-16] MEDS: Finasteride 5 MG Tab PO SCH (09:39)
[2016-12-16] MEDS: Pramipexole 0.25 MG Tab PO SCH ×2 (09:39→21:02)
[2016-12-16] MEDS: Diclofenac Sodium 1% Gel 100 GM Tube TOP SCH ×4 (09:40→21:02)
[2016-12-16] MEDS ORDERED: QUEtiapine 25 MG Tab PO ONE (20:35)
[2016-12-17] MEDS: Carbidopa/Levodopa 25-100 MG Tab PO SCH ×5 (06:29→18:13)
[2016-12-17] MEDS: Finasteride 5 MG Tab PO SCH (09:15)
[2016-12-17] MEDS: Celecoxib 200 MG Cap PO SCH (09:15)
[2016-12-17] MEDS: Hydrochlorothiazide 25 MG Tab PO SCH (09:15)
[2016-12-17] MEDS: Aspirin 81 MG Tab.EC PO SCH (09:15)
[2016-12-17] MEDS: Pramipexole 0.25 MG Tab PO SCH ×2 (09:15→21:06)
[2016-12-17] MEDS: Diclofenac Sodium 1% Gel 100 GM Tube TOP SCH ×4 (09:16→21:08)
[2016-12-17] MEDS: Febuxostat 40 MG Tab PO SCH (09:16)
[2016-12-17] MEDS: Acetaminophen 650 MG Tab.ER PO SCH ×2 (09:16→21:07)
--- NOTE | 2016-12-17 15:44 | PN ---
DATE SEEN: 12/17/2016 SUBJECTIVE: Michael Richardson is an 81-year-old male, seen today for review. He is . Plan for senior living. He has been in swing bed. Sent on 12/10/2016; most recent progress note on 12/13/[address] Silva. He had been given some Seroquel last evening, had been a bit obtunded and had been unresponsive. It did accompany him with a good night sleep. MEDICATIONS: Reviewed and appropriate. PHYSICAL EXAMINATION: VITAL SIGNS: Temperature 36.4, pulse 44, blood pressure 130/73, and 92 is the mean blood pressure. GENERAL: Speech was dysarthric and a little unintelligible, but improved with questioning. 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 Parkinson's with dementia. PLAN: Medications, care, and treatment appropriate. intermediate under consideration. We will discontinue Seroquel and add some Restoril 7.5 at bedtime. /[id number] RIOS/FABRICIO
[2016-12-17] MEDS: Temazepam 7.5 MG Cap PO SCH (21:18)
[2016-12-18] MEDS: Carbidopa/Levodopa 25-100 MG Tab PO SCH ×4 (05:46→17:52)
[2016-12-18] MEDS: Celecoxib 200 MG Cap PO SCH (09:26)
[2016-12-18] MEDS: Finasteride 5 MG Tab PO SCH (09:27)
[2016-12-18] MEDS: Pramipexole 0.25 MG Tab PO SCH ×2 (09:27→21:08)
[2016-12-18] MEDS: Aspirin 81 MG Tab.EC PO SCH (09:27)
[2016-12-18] MEDS: Hydrochlorothiazide 25 MG Tab PO SCH (09:27)
[2016-12-18] MEDS: Acetaminophen 650 MG Tab.ER PO SCH ×2 (09:28→21:08)
[2016-12-18] MEDS: Febuxostat 40 MG Tab PO SCH (09:28)
[2016-12-18] MEDS: Diclofenac Sodium 1% Gel 100 GM Tube TOP SCH ×4 (09:29→21:10)
--- NOTE | 2016-12-18 12:43 | PN ---
DATE SEEN: 12/18/2016 SUBJECTIVE: Mr. Turk is an 81-year-old male, swing bed. snf placement is in place. Issues are progressive Parkinson's and dementia. No new laboratory studies or intervention. Medications reviewed and appropriate. OBJECTIVE: VITAL SIGNS: 36.3, 48, 139/74, 18, and 78. GENERAL: Soft spoken. Speech was a bit garbled. CHEST: Clear. HEART: Regular. ABDOMEN: Benign. ASSESSMENT: Progressive decline neurologically, bradycardia. PLAN: EKG performed, intervention and care as appropriate. /[id number] RIOS/FABRICIO
[2016-12-18] MEDS: Temazepam 7.5 MG Cap PO SCH (21:18)
[2016-12-19] MEDS: Carbidopa/Levodopa 25-100 MG Tab PO SCH ×4 (06:05→17:41)
[2016-12-19] MEDS: Celecoxib 200 MG Cap PO SCH (08:54)
[2016-12-19] MEDS: Hydrochlorothiazide 25 MG Tab PO SCH (08:54)
[2016-12-19] MEDS: Pramipexole 0.25 MG Tab PO SCH ×2 (08:54→20:53)
[2016-12-19] MEDS: Aspirin 81 MG Tab.EC PO SCH (08:54)
[2016-12-19] MEDS: Acetaminophen 650 MG Tab.ER PO SCH ×2 (08:55→20:53)
[2016-12-19] MEDS: Febuxostat 40 MG Tab PO SCH (08:55)
[2016-12-19] MEDS: Finasteride 5 MG Tab PO SCH (08:55)
[2016-12-19] MEDS: Diclofenac Sodium 1% Gel 100 GM Tube TOP SCH ×4 (08:55→20:53)
[2016-12-19] MEDS: Temazepam 7.5 MG Cap PO SCH (20:53)
[2016-12-20] MEDS: Carbidopa/Levodopa 25-100 MG Tab PO SCH ×4 (05:15→17:19)
[2016-12-20] MEDS: Aspirin 81 MG Tab.EC PO SCH (08:25)
[2016-12-20] MEDS: Celecoxib 200 MG Cap PO SCH (08:25)
[2016-12-20] MEDS: Hydrochlorothiazide 25 MG Tab PO SCH (08:26)
[2016-12-20] MEDS: Finasteride 5 MG Tab PO SCH (08:36)
[2016-12-20] MEDS: Acetaminophen 650 MG Tab.ER PO SCH ×2 (08:36→20:08)
[2016-12-20] MEDS: Pramipexole 0.25 MG Tab PO SCH ×2 (08:36→20:08)
[2016-12-20] MEDS: Diclofenac Sodium 1% Gel 100 GM Tube TOP SCH ×4 (08:37→20:09)
[2016-12-20] MEDS: Febuxostat 40 MG Tab PO SCH (08:37)
[2016-12-20] MEDS: Temazepam 7.5 MG Cap PO SCH (20:17)
[2016-12-21] MEDS: Carbidopa/Levodopa 25-100 MG Tab PO SCH ×4 (06:24→17:36)
--- NOTE | 2016-12-21 07:21 | PCM.PN ---
- General Info Date of Service: 12/21/16 Admission Dx/Problem (Free Text): Patient without complaints. He states he is doing okay with walking. He states he has to be very careful not to step to the side otherwise he may lose balance. He states that's better. He denies chest pain, shortness of breath, fevers or chills. - Patient Data Vitals - most recent: Last Vital Signs Temp 97.6 F 12/19/16 08:00 Pulse 43 L 12/20/16 08:00 Resp 18 12/20/16 08:00 BP 102/59 L 12/20/16 08:00 Pulse Ox 99 12/20/16 08:00 Weight - most recent: 178 lb 11.2 oz Med Orders - Current: Current Medications Acetaminophen (Tylenol Arthritis Pain) 650 mg PO BID [facility] Last Admin: 12/20/16 20:08 Dose: 650 mg Aspirin (Halfprin) 81 mg PO DAILY [facility] Last Admin: 12/20/16 08:25 Dose: 81 mg Carbidopa/Levodopa (Sinemet 25-100 Mg) 1 tab PO ,,,18 [facility] Last Admin: 12/21/16 06:24 Dose: 1 tab Celecoxib (Celebrex) 200 mg PO DAILY [facility] Last Admin: 12/20/16 08:25 Dose: 200 mg Diclofenac Sodium (Voltaren 1% Gel) 2 gm TOP QID [facility] Last Admin: 12/20/16 20:09 Dose: 2 gm Febuxostat (Uloric) 40 mg PO DAILY [facility] Last Admin: 12/20/16 08:37 Dose: 40 mg Finasteride (Proscar) 5 mg PO DAILY [facility] Last Admin: 12/20/16 08:36 Dose: 5 mg Hydrochlorothiazide (Hydrochlorothiazide) 25 mg PO DAILY [facility] Last Admin: 12/20/16 08:26 Dose: 25 mg Loperamide HCl (Imodium) 4 mg PO Q6H PRN PRN Reason: LOOSE STOOLS Magnesium Citrate (Citrate Of Magnesia) 296 ml PO DAILY PRN PRN Reason: Constipation Melatonin (Melatonin) 5 mg PO BEDTIME [facility] Last Admin: 12/20/16 20:08 Dose: 5 mg Polyethylene Glycol (Miralax) 17 gm PO DAILY PRN PRN Reason: Constipation Last Admin: 12/15/16 14:42 Dose: 17 gm Pramipexole Dihydrochloride (Mirapex) 0.25 mg PO BID [facility] Last Admin: 12/20/16 20:08 Dose: 0.25 mg Pramipexole Dihydrochloride (Mirapex) 0.25 mg PO Q4H PRN PRN Reason: restless legs Temazepam (Restoril) 7.5 mg PO BEDTIME [facility] Last Admin: 12/20/16 20:17 Dose: 7.5 mg Discontinued Medications Quetiapine Fumarate (Seroquel) 25 mg PO ONETIME ONE Stop: 12/16/16 20:36 Last Admin: 12/16/16 21:01 Dose: 25 mg - Exam General: alert, oriented Neck: supple Lungs: Clear to auscultation, Normal respiratory effort Cardiovascular: Regular Rate, Irregular Rhythm Extremities: no edema - Problem List & Annotations (1) A-fib SNOMED Code(s): 57840292 Code(s): I48.91 - UNSPECIFIED ATRIAL FIBRILLATION Status: Acute Current Visit: Yes (2) Bradycardia SNOMED Code(s): 83285917 Code(s): R00.1 - BRADYCARDIA, UNSPECIFIED Status: Acute Current Visit: Yes (3) Fall SNOMED Code(s): 3890193 Code(s): W19.XXXA - UNSPECIFIED FALL, INITIAL ENCOUNTER Status: Acute Priority: High Current Visit: No Onset Date: 04/02/14 Annotation/Comment: : Gait belt, CT scan negative, MRI in am. Labs pending Mild elevation of bili. Rest labs negative. MRI delay, patient claustrophobic. Periods of confusion. Sedated MRI done today. Preliminary MRI shows lacunar changes and small vessel dx. Discussed with patient briefly. (4) Physical deconditioning SNOMED Code(s): 07348288591693 Code(s): R53.81 - OTHER MALAISE Status: Acute Current Visit: No (5) Dementia SNOMED Code(s): 70749585 Code(s): F03.90 - UNSPECIFIED DEMENTIA WITHOUT BEHAVIORAL DISTURBANCE Status: Chronic Current Visit: No (6) Parkinson's disease SNOMED Code(s): 81899719 Code(s): G20 - PARKINSON'S DISEASE Status: Chronic Priority: High Current Visit: No Onset Date: 04/02/14 Annotation/Comment:: Continue current medications. Continue medications - Problem List Review Problem List Initiated/Reviewed/Updated: Yes - Plan Plan:: 1. Awaiting longterm placement. 2. Continue current care
[2016-12-21] MEDS: Hydrochlorothiazide 25 MG Tab PO SCH (09:10)
[2016-12-21] MEDS: Aspirin 81 MG Tab.EC PO SCH (09:10)
[2016-12-21] MEDS: Celecoxib 200 MG Cap PO SCH (09:10)
[2016-12-21] MEDS: Febuxostat 40 MG Tab PO SCH (09:11)
[2016-12-21] MEDS: Acetaminophen 650 MG Tab.ER PO SCH ×2 (09:11→20:59)
[2016-12-21] MEDS: Pramipexole 0.25 MG Tab PO SCH ×2 (09:11→20:57)
[2016-12-21] MEDS: Finasteride 5 MG Tab PO SCH (09:11)
[2016-12-21] MEDS: Diclofenac Sodium 1% Gel 100 GM Tube TOP SCH ×4 (09:12→21:00)
[2016-12-21] MEDS: Temazepam 7.5 MG Cap PO SCH (21:03)
[2016-12-22] MEDS: Carbidopa/Levodopa 25-100 MG Tab PO SCH ×4 (05:30→17:32)
[2016-12-22] MEDS: Celecoxib 200 MG Cap PO SCH (09:16)
[2016-12-22] MEDS: Hydrochlorothiazide 25 MG Tab PO SCH (09:16)
[2016-12-22] MEDS: Aspirin 81 MG Tab.EC PO SCH (09:16)
[2016-12-22] MEDS: Acetaminophen 650 MG Tab.ER PO SCH ×2 (09:17→21:28)
[2016-12-22] MEDS: Pramipexole 0.25 MG Tab PO SCH ×2 (09:17→21:28)
[2016-12-22] MEDS: Diclofenac Sodium 1% Gel 100 GM Tube TOP SCH ×4 (09:17→21:28)
[2016-12-22] MEDS: Febuxostat 40 MG Tab PO SCH (09:17)
[2016-12-22] MEDS: Temazepam 7.5 MG Cap PO SCH (21:28)
[2016-12-23] MEDS: Carbidopa/Levodopa 25-100 MG Tab PO SCH ×2 (06:12→10:07)
--- NOTE | 2016-12-23 07:15 | PCM.DCSUM1 ---
Discharge Summary - Hospital Course Free Text/Narrative:: Swing bed course-patient did well with walking. It was felt by therapy and this is 11 that he would not do well again this is 11 so longterm was sought for him. He did have some bradycardia but seem to be asymptomatic from it. I looked in the old chart and then every 4 and addressed by his primary care physician Dr. Isabel. Patient had therapy and did well. No issues while he was here. He will be transferred to [facility]. Brief History: 80-year-old male from [facility]. He came in because generalized weakness,and confusion symptoms which got significantly worse in him a month. His main concern today is left shoulder pain that is chronic.No trauma.Had injection of a steroid in October,withno improvement.Movement makes the pain worse. The confusion has been noted by the staff,with increased need of assistance with activities of daily living .He has a history of Parkinson's disease that's progressively gotten worse recently,with speech and gait disturbance.He has hypertension ,afib,CHF which have been stable. - Discharge Data Discharge Date: 12/23/16 Discharge Disposition: DC/Tfer to [facility] Condition: Good - Discharge Diagnosis/Problem(s) (1) A-fib SNOMED Code(s): 30338639 ICD Code: I48.91 - UNSPECIFIED ATRIAL FIBRILLATION Status: Acute Current Visit: Yes (2) Bradycardia SNOMED Code(s): 10654658 ICD Code: R00.1 - BRADYCARDIA, UNSPECIFIED Status: Acute Current Visit: Yes (3) Fall SNOMED Code(s): 6155811 ICD Code: W19.XXXA - UNSPECIFIED FALL, INITIAL ENCOUNTER Status: Acute Priority: High Current Visit: No Onset Date: 04/02/14 Problem Details: Gait belt, CT scan negative, MRI in am. Labs pending Mild elevation of bili. Rest labs negative. MRI delay, patient claustrophobic. Periods of confusion. Sedated MRI done today. Preliminary MRI shows lacunar changes and small vessel dx. Discussed with patient briefly. (4) Physical deconditioning SNOMED Code(s): 53585840229329 ICD Code: R53.81 - OTHER MALAISE Status: Acute Current Visit: No (5) Dementia SNOMED Code(s): 85226941 ICD Code: F03.90 - UNSPECIFIED DEMENTIA WITHOUT BEHAVIORAL DISTURBANCE Status: Chronic Current Visit: No (6) Parkinson's disease SNOMED Code(s): 68845779 ICD Code: G20 - PARKINSON'S DISEASE Status: Chronic Priority: High Current Visit: No Onset Date: 04/02/14 Problem Details: Continue current medications. Continue medications - Patient Summary/Data Consults: Consultations 12/10/16 11:02 OT Evaluation and Treatment [CONS] Routine Please Evaluate and Treat. OT Reason for Consult: Strengthening This query below is only for informational purposes and is not editable. PT Evaluation and Treatment [CONS] Routine Please Evaluate and Treat. PT Reason for Consult: Balance This query below is only for informational purposes and is not editable. - Patient Instructions Diet: Regular Diet as Tolerated Activity: As Tolerated Driving: Do Not Drive Showering/Bathing: May Shower Other/Special Instructions: 1. PT/OT - Discharge Plan Home Medications: Home Meds Acetaminophen [Tylenol] 650 mg PO Q4H PRN 04/02/14 [History] Aspirin [Halfprin] 81 mg PO DAILY 04/02/14 [History] Finasteride [Proscar] 5 mg PO DAILY 04/02/14 [History] Loperamide [Imodium] 4 mg PO Q6H PRN 04/02/14 [History] Magnesium Citrate 296 ml PO DAILY PRN 04/02/14 [History] Polyethylene Glycol 3350 [MiraLAX] 17 gm PO DAILY PRN 04/02/14 [History] Pramipexole Di-HCl [Mirapex] 0.25 mg PO BID 04/02/14 [History] Carbidopa/Levodopa [Carbidopa-Levodopa 25-100] 1 tab PO ,,,18 04/05/14 [ History] Melatonin 5 mg PO BEDTIME 05/27/15 [History] Febuxostat [Uloric] 40 mg PO DAILY 03/19/16 [History] Hydrochlorothiazide 25 mg PO DAILY 03/19/16 [History] Pramipexole Di-HCl [Mirapex] 0.25 mg PO Q4H PRN 03/20/16 [History] Acetaminophen [Tylenol Arthritis] 650 mg PO BID 12/07/16 [History] Celecoxib [CeleBREX] 200 mg PO DAILY 12/10/16 [History] Diclofenac Sodium [Voltaren 1% Gel] 2 gm TOP QID #1 tube 12/10/16 [Rx] - Discharge Summary/Plan Comment DC Time >30 min.: No - Patient Data Vitals - Most Recent: Last Vital Signs Temp 97.8 F 12/22/16 08:00 Pulse 50 L 12/22/16 08:00 Resp 18 12/22/16 08:00 BP 120/61 12/22/16 08:00 Pulse Ox 97 12/22/16 08:00 Weight - Most Recent: 176 lb 9.6 oz Med Orders - Current: Current Medications Acetaminophen (Tylenol Arthritis Pain) 650 mg PO BID [facility] Last Admin: 12/22/16 21:28 Dose: 650 mg Aspirin (Halfprin) 81 mg PO DAILY [facility] Last Admin: 12/22/16 09:16 Dose: 81 mg Carbidopa/Levodopa (Sinemet 25-100 Mg) 1 tab PO ,,,18 [facility] Last Admin: 12/23/16 06:12 Dose: 1 tab Celecoxib (Celebrex) 200 mg PO DAILY [facility] Last Admin: 12/22/16 09:16 Dose: 200 mg Diclofenac Sodium (Voltaren 1% Gel) 2 gm TOP QID [facility] Last Admin: 12/22/16 21:28 Dose: 2 gm Febuxostat (Uloric) 40 mg PO DAILY [facility] Last Admin: 12/22/16 09:17 Dose: 40 mg Finasteride (Proscar) 5 mg PO DAILY [facility] Last Admin: 12/21/16 09:11 Dose: 5 mg Hydrochlorothiazide (Hydrochlorothiazide) 25 mg PO DAILY [facility] Last Admin: 12/22/16 09:16 Dose: 25 mg Loperamide HCl (Imodium) 4 mg PO Q6H PRN PRN Reason: LOOSE STOOLS Magnesium Citrate (Citrate Of Magnesia) 296 ml PO DAILY PRN PRN Reason: Constipation Melatonin (Melatonin) 5 mg PO BEDTIME [facility] Last Admin: 12/22/16 21:28 Dose: 5 mg Polyethylene Glycol (Miralax) 17 gm PO DAILY PRN PRN Reason: Constipation Last Admin: 12/15/16 14:42 Dose: 17 gm Pramipexole Dihydrochloride (Mirapex) 0.25 mg PO BID [facility] Last Admin: 12/22/16 21:28 Dose: 0.25 mg Pramipexole Dihydrochloride (Mirapex) 0.25 mg PO Q4H PRN PRN Reason: restless legs Temazepam (Restoril) 7.5 mg PO BEDTIME [facility] Last Admin: 12/22/16 21:28 Dose: 7.5 mg Discontinued Medications Quetiapine Fumarate (Seroquel) 25 mg PO ONETIME ONE Stop: 12/16/16 20:36 Last Admin: 12/16/16 21:01 Dose: 25 mg *Q Meaningful Use (DIS) - VTE *Q VTE Criteria *Q: - Stroke *Q Stroke Criteria *Q: - AMI *Q AMI Criteria *Q:
[2016-12-23 08:48] VITALS: BP 122/62
[2016-12-23] MEDS: Celecoxib 200 MG Cap PO SCH (08:58)
[2016-12-23] MEDS: Aspirin 81 MG Tab.EC PO SCH (08:58)
[2016-12-23] MEDS: Febuxostat 40 MG Tab PO SCH (08:59)
[2016-12-23] MEDS: Pramipexole 0.25 MG Tab PO SCH (08:59)
[2016-12-23] MEDS: Acetaminophen 650 MG Tab.ER PO SCH (08:59)
[2016-12-23] MEDS: Finasteride 5 MG Tab PO SCH (08:59)
[2016-12-23] MEDS: Hydrochlorothiazide 25 MG Tab PO SCH (08:59)
[2016-12-23] MEDS: Diclofenac Sodium 1% Gel 100 GM Tube TOP SCH (09:00)
== END 2016-12-18 00:01 | disposition swing bed (61) | DRG 948 ==
LOC: FB.MS 10:47 → UNDODISIN 12-18 00:01
PROVIDERS: ADMIT Family Medicine; ATTEND Family Medicine
DX: R53.1 Weakness (principal); M19.90 Unspecified osteoarthritis, unspecified site; G20 Parkinson's disease; F02.80 Dementia in other diseases classified elsewhere, unspecified severity, without behavioral disturbance, psychotic disturbance, mood disturbance, and anxiety; I10 Essential (primary) hypertension; I48.91 Unspecified atrial fibrillation; Z91.81 History of falling; R29.6 Repeated falls; R00.1 Bradycardia, unspecified; Z85.46 Personal history of malignant neoplasm of prostate; Z85.828 Personal history of other malignant neoplasm of skin; Z79.82 Long term (current) use of aspirin
CPT/HCPCS: 93005; 97161-GP; 97168-GO; 97530-GO-KX; A9270-GY

== ENCOUNTER 2016-12-18 00:02 | Inpatient (IN) | payer MEDICARE, OTHER | END 2016-12-23 10:20 | DRG 948 | LOC: FB.MS 00:02 | PROVIDERS: ADMIT Family Medicine; ATTEND Family Medicine | DX: R53.1 Weakness (principal); M19.90 Unspecified osteoarthritis, unspecified site; G20 Parkinson's disease; I10 Essential (primary) hypertension; F02.80 Dementia in other diseases classified elsewhere, unspecified severity, without behavioral disturbance, psychotic disturbance, mood disturbance, and anxiety; R26.89 Other abnormalities of gait and mobility; Z85.46 Personal history of malignant neoplasm of prostate; Z85.828 Personal history of other malignant neoplasm of skin; R00.1 Bradycardia, unspecified; R29.6 Repeated falls; Z79.82 Long term (current) use of aspirin | CPT/HCPCS: A9270-GY ==

== ENCOUNTER 2017-02-09 21:58 | Emergency (ER) | payer MEDICARE, OTHER ==
[~2017-02-09 21:58] MED LIST: Lidocaine 1% 20 ML MDV INFILT ONE
--- NOTE | 2017-02-09 22:12 | EDM.PDOC ---
ED HPI GENERAL MEDICAL PROBLEM - General Stated Complaint: FALL EAR LAC Time Seen by Provider: 02/09/17 22:12 Source of Information: Reports: Patient History Limitations: Reports: No Limitations - History of Present Illness INITIAL COMMENTS - FREE TEXT/NARRATIVE: 81 yo gentleman --[place] resident who presented to the ER with laceration to the right ear following an episode of mechanical Fall. Reports that he tripped and Fell down and apparently sustained injury to the right Ear Lobe. No LOC and he does not think that he hit his head. He is unsure of his tetanus immunization. Was brought to the ER on account of worsening of symptoms. Onset: Today Onset Date: 02/09/17 Duration: Hour(s): (occurs about 2 hours prior to presentation.) Location: Reports: Other (Right Ear) Improves with: Reports: None Worsens with: Reports: None Associated Symptoms: Reports: No Other Symptoms - Related Data Allergies Allergy/AdvReac Type Severity Reaction Status Date / Time No Known Allergies Allergy Verified 02/09/17 22:16 Home Meds: Home Meds Aspirin [Halfprin] 81 mg PO DAILY 04/02/14 [History] Finasteride [Proscar] 5 mg PO DAILY 04/02/14 [History] Polyethylene Glycol 3350 [MiraLAX] 17 gm PO DAILY PRN 04/02/14 [History] Carbidopa/Levodopa [Carbidopa-Levodopa 25-100] 1 tab PO 06,,,18 04/05/14 [ History] Melatonin 5 mg PO BEDTIME 05/27/15 [History] Febuxostat [Uloric] 40 mg PO DAILY 03/19/16 [History] Hydrochlorothiazide 25 mg PO DAILY 03/19/16 [History] Acetaminophen [Tylenol Arthritis] 650 mg PO BID 12/07/16 [History] Past Medical History HEENT History: Reports: Cataract Other HEENT History: BASAL CELL CA OF LEFT LOWER EYELID. Cardiovascular History: Reports: Afib, Hypertension Respiratory History: Reports: None Other Gastrointestinal History: STATES HAS HAD HERNIA REPAIR Genitourinary History: Reports: Prostate Disorder Musculoskeletal History: Reports: Back Pain, Chronic, Fracture, Gout Neurological History: Reports: Parkinson's Psychiatric History: Reports: Anxiety Hematologic History: Reports: None Immunologic History: Reports: None Oncologic (Cancer) History: Reports: Basal Cell Carcinoma, Prostate Dermatologic History: Reports: Other (See Below) Other Dermatologic History: FACIAL BASAL CELL CANCER - Infectious Disease History Infectious Disease History: Reports: Chicken Pox, Influenza, Shingles - Past Surgical History HEENT Surgical History: Reports: Cataract Surgery Cardiovascular Surgical History: Reports: None Respiratory Surgical History: Reports: None GI Surgical History: Reports: Appendectomy, Hernia, Abdominal Male Surgical History: Reports: Other (See Below) Musculoskeletal Surgical History: Reports: Shoulder Surgery, Other (See Below) Dermatological Surgical History: Reports: Skin Biopsy Social & Family History - Family History Family Medical History: Noncontributory - Tobacco Use Smoking Status *Q: Never Smoker Second Hand Smoke Exposure: No - Caffeine Use Caffeine Use: Reports: Coffee - Alcohol Use Days Per Week of Alcohol Use: 7 Number of Drinks Per Day: 2 Total Drinks Per Week: 14 - Recreational Drug Use Recreational Drug Use: No ED ROS GENERAL - Review of Systems Review Of Systems: See Below Constitutional: Reports: No Symptoms HEENT: Reports: Other (right ear Laceration) Respiratory: Reports: No Symptoms Cardiovascular: Reports: No Symptoms Endocrine: Reports: No Symptoms GI/Abdominal: Reports: No Symptoms : Reports: No Symptoms Musculoskeletal: Reports: No Symptoms Skin: Reports: No Symptoms Neurological: Reports: No Symptoms Psychiatric: Reports: No Symptoms Hematologic/Lymphatic: Reports: No Symptoms Immunologic: Reports: No Symptoms ED EXAM, GENERAL - Physical Exam Exam: See Below Exam Limited By: No Limitations General Appearance: Alert, WD/WN, No Apparent Distress Eye Exam: Bilateral Eye: PERRL Ears: Normal External Exam, Normal Canal, Hearing Grossly Normal, Normal TMs, Other (Right Ear -- 5 cm Lac on the outer edge of the right Ear Lobe) Nose: Normal Inspection, Normal Mucosa Throat/Mouth: Normal Inspection, Normal Lips, Normal Teeth Head: Atraumatic, Normocephalic Neck: Normal Inspection, Supple, Non-Tender, Full Range of Motion Respiratory/Chest: No Respiratory Distress, Lungs Clear Cardiovascular: Normal Peripheral Pulses, Regular Rate, Rhythm, No Edema, No Murmur GI/Abdominal: Normal Bowel Sounds, Soft, Non-Tender, No Organomegaly Back Exam: Normal Inspection, Full Range of Motion Extremities: Normal Inspection, Normal Range of Motion, Non-Tender, No Pedal Edema Neurological: Alert, Oriented, CN II-XII Intact Psychiatric: Normal Affect, Normal Mood Skin Exam: Warm Lymphatic: No Adenopathy ED GENERAL MEDICAL PROCEDURES - Laceration/Wound Repair Right Ear Lac/wound length in cm: 5 Appearance: Superficial Distal NVT: Neuro & Vascular Intact Local Anesthesia - Lidocaine (Xylocaine): 1% Plain Local Anesthetic Volume: 2cc Exploration/Debridement/Repair: Wound Explored Closed with: Sutures Suture Size: 4-0 # of Sutures: 6 (Ethilon) Drain Placement: No Sterile Dressing Applied: Nurse Tetanus Status Addressed: Yes Complications: No Complication Description: Tolerated procedure. No immediate complications noted Course - Vital Signs Last Recorded V/S: Last Vital Signs Temp 36.9 C 02/09/17 21:58 Pulse 45 L 02/09/17 21:58 Resp 18 02/09/17 21:58 BP 152/62 H 02/09/17 21:58 Pulse Ox 100 02/09/17 21:58 - Orders/Labs/Meds Orders: Active Orders 24 hr Category Date Time Status Vaccines to be Administered [RC] PER UNIT ROUTINE Care 02/09/17 22:14 Active Meds: Medications Discontinued Medications Generic Name Dose Route Start Last Admin Trade Name Santiago PRN Reason Stop Dose Admin Diphtheria/Tetanus/Acell Pertussis 0.5 ml 02/09/17 22:14 02/09/17 22:37 Adacel IM 02/09/17 22:15 0.5 ml .ONCE ONE Administration Departure - Departure Time of Disposition: 23:11 Disposition: Home, Self-Care 01 Condition: Good Clinical Impression: Laceration - Discharge Information Instructions: Laceration Care, Adult Referrals: David Peter MD [Primary Care Provider] - Forms: ED Department Discharge Additional Instructions: Follow with PCP Sutures out in 7 days Return if symptoms worsen Call your Physician or Return to Emergency Department if: * Your condition worsens in any way. * You develop fever greater than 100.4. * You have vomitting that does not stop with medications. * You have pain that is not controlled with medications. - My Orders Last 24 Hours: My Active Orders 02/09/17 22:14 Vaccines to be Administered [RC] PER UNIT ROUTINE - Assessment/Plan Last 24 Hours: My Active Orders 02/09/17 22:14 Vaccines to be Administered [RC] PER UNIT ROUTINE
[2017-02-09] MEDS ORDERED: Diphtheria,Pertussis(Acell),Tetanus Vaccine 0.5 ML SDV IM ONE (22:14)
[2017-02-09 22:46] VITALS: BP 152/62
== END 2017-02-09 23:15 | disposition home or self-care (01) ==
LOC: FB.ED 21:58
DX: S01.311A Laceration without foreign body of right ear, initial encounter (principal); I48.91 Unspecified atrial fibrillation; I10 Essential (primary) hypertension; G20 Parkinson's disease; Z79.82 Long term (current) use of aspirin; Z79.899 Other long term (current) drug therapy; W19.XXXA Unspecified fall, initial encounter
CPT/HCPCS: 12002; 12013; 90471; 90715; 99282; 99283; A4217